=== PATIENT | female | born 1970 | race African-American/Black ===

== ENCOUNTER 2018-01-23 23:57 | Emergency (ER) | payer MEDICAID ==
[~2018-01-23] VITALS: Ht 165.1 cm; Wt 99.8 kg
[2018-01-24 00:09] VITALS: BP 137/85
== END 2018-01-24 00:50 | disposition home or self-care (01) ==
LOC: ER 01-24 00:01 → EEVIPCON 01-24 00:01 → ER 01-24 00:37
DX: J03.90 Acute tonsillitis, unspecified (principal); B96.89 Other specified bacterial agents as the cause of diseases classified elsewhere

== ENCOUNTER 2018-10-27 10:03 | Emergency (ER) | payer MEDICAID ==
[~2018-10-27] VITALS: Ht 165.1 cm; Wt 109.8 kg
[2018-10-27 10:10] VITALS: BP 123/63
== END 2018-10-27 11:38 | disposition home or self-care (01) ==
LOC: ER 10:11
DX: K02.9 Dental caries, unspecified (principal); Z90.49 Acquired absence of other specified parts of digestive tract